=== PATIENT | male | born 1955 | race Caucasian/White ===

== ENCOUNTER 2016-11-19 09:46 | Emergency (ER) | payer OTHER ==
[~2016-11-19] VITALS: Ht 182.9 cm; Wt 87.0 kg
[2016-11-19 09:47] VITALS: BP 157/71; PULSE 62; RESP 16; TEMP 98.5; O2SAT 97
[2016-11-19] MEDS ORDERED: NAPROXEN 500 MG TAB PO ONE (10:30)
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
[2016-11-19] MEDS ORDERED: CYCL1TAB29 PO (11:52)
[2016-11-19] MEDS ORDERED: NAPR500 PO (11:52)
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
== END 2016-11-19 12:18 | disposition home or self-care (01) ==
LOC: NEPB 09:46
DX: S16.1XXA Strain of muscle, fascia and tendon at neck level, initial encounter (principal); S39.012A Strain of muscle, fascia and tendon of lower back, initial encounter; M25.512 Pain in left shoulder; V87.7XXA Person injured in collision between other specified motor vehicles (traffic), initial encounter; Y92.410 Unspecified street and highway as the place of occurrence of the external cause; Y99.0 Civilian activity done for income or pay
CPT/HCPCS: 72125; 72131; 73030